=== PATIENT | male | born 1930 | race Caucasian/White ===

== ENCOUNTER → 2017-03-18 | Outpatient (CLI) | payer MEDICARE, OTHER ==
[~2017-03-18] MED LIST: ALLOPURINOL300 MG; ASA 81MG; ASPIRIN81 M1 PO; B12 INJECTION; B121000 MCG/1 IM; CITRATE PO; CLONAZEPAM0.5 MG PO; ETODOLAC400 MG; FLOMAX0.4 MG PO; HYZAAR 12.5 MG-1 TA2; K CITRATE; KEPPRA500 MG PO; LIPITOR20 MG; METANX CAPSULE1 EACH PO; METFORMIN HCL500 MG PO; MIRAPEX0.5 MG; OCUVITE1 TA1; PRAVASTATIN SOD20 MG PO; PRESERVISION A1 EAC1 PO; PRESERVISION AR1 SGL; PRESERVISION AR1 SGL PO; PRILOSEC OTC20 MG; RED YEAST RICE; TRAMADOL HYDROC50 MG PO; TRILEPTAL600 MG; VITAMIN B COMPL1 CAP PO; VITAMIN B1250 MG PO; VITAMIN B12500 MCG PO; VITAMIN B6100 MG PO; [UNRECOGNIZED DRUG - OTHER] PO
== END | disposition home or self-care (01) ==
LOC: RAD 07:33
DX: R13.10 Dysphagia, unspecified (principal)

== ENCOUNTER → 2018-06-23 | Outpatient (CLI) | payer MEDICARE ==
[~2018-06-23] MED LIST changes: +ATORVASTATIN CA10 M1 PO; +Glimepiride1 MG PO; +LOSARTAN POTASS25 M1 PO; +POTASSIUM CITR10 MEQ PO; +PROSCAR5 M1 PO; +SYMB80 INH
== END | disposition home or self-care (01) ==
LOC: LAB 07:50
DX: K52.9 Noninfective gastroenteritis and colitis, unspecified (principal)

== ENCOUNTER 2018-08-01 12:47 | Inpatient (IN) | payer MEDICARE ==
[~2018-08-01] VITALS: Ht 182.8 cm; Wt 97.1 kg
--- NOTE | ~2018-08-01 | PR ---
[place], [place] PROGRESS NOTE NAME: WILBERT CALLE UNIT #: [id number] ROOM: 509 DOCTOR: MARINA CULP MD BIRTHDATE: [birth year] DOS: 08/03/2018 CARDIOLOGY PROGRESS NOTE SUBJECTIVE: The patient was seen at his bedside today 08/03/2018 with family in attendance. The patient tells me that his diaphoresis has resolved, but he is still "shaky." He was told by his primary team that he has "heart failure." I spoke to the primary team based this observation on his stage 1 diastolic relaxation abnormalities. Stage 1 diastolic relaxation abnormalities are universal in anybody over age 40 and relate to delayed left ventricular relaxation. This may predispose to heart failure, but does not prove clinical heart failure. The patient's chest x-ray shows no pulmonary vascular congestion. His exam does not show fluid overload and a BNP level was 193, which is well within normal limits for this lab. PHYSICAL EXAMINATION: VITAL SIGNS: Today, his pulse is 79 and regular, blood pressure is 138/50. He is afebrile. NECK: Supple. He has no jugular distention. Carotids are full. LUNGS: Respirations are unlabored. Chest is clear. HEART: Has a regular rhythm. He had a fourth heart sound, no third heart sound or significant murmur. ABDOMEN: Soft and normally active. EXTREMITIES: Showed no edema. Pedal pulses are easily palpated in the feet bilaterally. IMPRESSION: 1. Fatigue and weakness, etiology to be determined. 2. Near syncope, probably vasovagal. 3. Diaphoresis -- resolved. 4. History of insulin resistance. 5. Cardiac catheterization within the last 2 years at a [facility] reportedly showed no signs of coronary artery disease. 6. No evidence for clinical congestive heart failure. PLAN: No other cardiac workup is planned at this time. He should be managed with normal risk factor modifying techniques, but specific management for heart condition is not indicated. I thank the hospitalist group for asking our advice regarding his care. [place], [place] PROGRESS NOTE NAME: WILBERT CALLE UNIT #: [id number] ROOM: 509 DOCTOR: MARINA CULP MD BIRTHDATE: [birth year] MARINA CULP MD CM:MARSHALL [id number] MARINA CULP MD 08/03/18 1249 interface
--- NOTE | ~2018-08-01 | EKG ---
[place], [place] ELECTROCARDIOGRAM REPORT NAME: WILBERT CALLE UNIT #: [id number] ROOM: 509 DOCTOR: CASTRO DRAFT REPORT BIRTHDATE: [birth year] [facility] Test Date: 2018-08-01 Test Time: 13:03:20 Pat Name: WILBERT CALLE Department: Room: 509 Gender: M Blindstitch Lapel Padder: 0012 : 1930 Requested By: CRISTINA EMMANUEL Order Number: [id number] Reading MD: Jj Johnson MD Measurements Intervals [place] Rate: 63 P: 0 TX: 162 QRS: -39 QRSD: 102 T: 25 QT: 400 QTc: 410 Interpretive Statements Sinus rhythm Abnormal R-wave progression, late transition Inferior infarct, old cannot be ruled out Electronically Signed On 08-01-2018 13:51:43 PDT by Jj Johnson MD CM:EKGRPT:ELECTROCARDIOGRAM REPORT [id number] CRISTINA DUNCAN DRAFT REPORT CRISTINA EMMANUEL DO
--- NOTE | ~2018-08-01 | PR ---
[place], [place] PROGRESS NOTE NAME: WILBERT CALLE UNIT #: [id number] ROOM: 509 DOCTOR: MARINA CULP MD BIRTHDATE: [birth year] DOS: 08/02/2018 SUBJECTIVE: The patient was seen at his bedside with his in attendance today, 08/02/2018. He states that he feels reasonably well this morning. He has not had any further diaphoresis. PHYSICAL EXAMINATION: VITAL SIGNS: His pulse is 72 and regular, blood pressure is 136/97. Orthostatics were unremarkable. He is afebrile. He weighs 97.1 kilograms with a body mass index of 29. NECK: Supple. He has no jugular distention. Carotids are full without bruits. LUNGS: Respirations are unlabored. His chest is clear to auscultation and percussion. HEART: Has a regular rhythm. He has an S4 gallop, but no S3. ABDOMEN: Soft and normally active without masses, organomegaly or bruits. EXTREMITIES: Showed no edema. Peripheral pulses are easily palpated in the feet. LABORATORY DATA: Hemoglobin is 14.4, white count 6000, platelet count 163,000. D-dimer is normal at 0.29. Sodium is 140, potassium 4.8, BUN 22, creatinine 0.97. Total cholesterol is 152, LDL 70. TSH 1.52, free T4 1.07. IMPRESSION: 1. Fatigue and weakness, etiology to be determined. 2. Near syncope. 3. Diaphoresis. 4. History of insulin resistance. 5. History of cardiac catheterization within the last 2 years in a [facility], which reportedly showed no signs of coronary artery disease. PLAN: The patient will ambulate today. 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 An echocardiogram is also pending. We will review these results when available. I thank the hospitalist physicians for asking our advice regarding his care. [place], [place] PROGRESS NOTE NAME: WILBERT CALLE UNIT #: [id number] ROOM: 509 DOCTOR: MARINA CULP MD BIRTHDATE: [birth year] MARINA CULP MD CM:PNTRANS [id number] MARINA CULP MD 08/02/18 1733 interface
--- NOTE | ~2018-08-01 | CON ---
[place], [place] RE[facility] OF [facility]ULTATION [id number] UNIT #: [id number] ROOM: 509 DOCTOR: MARINA CULP MD BIRTHDATE: [birth year] DOS: 08/01/2018 CARDIOLOGY CONSULTATION REASON FOR CONSULTATION: Weakness, diaphoresis, near syncope. HISTORY OF PRESENT ILLNESS: The patient was seen at his bedside at [facility] with his in attendance on 08/01/2018 for evaluation of weakness, diaphoresis and near syncope. He states that he has been feeling poorly for several days. He states that when he is active, he feels like he is weak and could pass out. He states that this is a definite change for him since he is usually very active. He has not had any chest pain or palpitations. He denies any true syncope. He has not had fevers, chills or pedal edema, but he has had the diaphoresis noted above. The patient did have a cardiac catheterization 2 years ago as part of a preoperative assessment prior to left knee replacement. The study was done in [place]. He was told at that time that everything was clear and that he did not have any significant coronary artery disease. PAST MEDICAL HISTORY: Includes: 1. Prediabetes/insulin resistance. 2. Degenerative joint disease, status post bilateral knee replacements. 3. History of macular degeneration. 4. History of gastritis. 5. History of hyperlipidemia. 6. Status post cholecystectomy. 7. History of kidney stones. MEDICATIONS: Prior to admission, vitamin B12 1000 mcg injected monthly, Symbicort 2 puffs q.12 hours, aspirin 81 mg at bedtime, atorvastatin 10 mg 3 times weekly, finasteride 5 mg at bedtime, glimepiride 1 mg at bedtime, losartan 25 mg daily, potassium citrate 10 mEq b.i.d., tramadol 50 mg q.i.d. as needed and Mirapex 0.5 mg at bedtime. ALLERGIES: The patient lists an allergy to FAMCICLOVIR. FAMILY HISTORY: The patient's mother of a stroke, but was 104 years of age. His father of a stroke in his 60s. REVIEW OF SYSTEMS: The patient denies diplopia or loss of vision. He denies syncope. He denies focal weakness. He denies fevers or chills. He has had sweats. He denies nausea or vomiting. He denies change in his appetite, but he states that he gets bloated any time he eats or drinks anything. He denies blood in his stools or urine, but has had some loose stools lately. He denies vomiting, hemoptysis or hematemesis. He denies any recent weight change. He denies any skin rash. He denies any peripheral edema. He denies heat or cold intolerance. He denies polyuria or polydipsia. The remainder of the review of systems is negative except as noted above. [place], [place] REPORT OF CONSULTATION NAME: WILBERT CALLE UNIT #: [id number] ROOM: 509 DOCTOR: MARINA CULP MD BIRTHDATE: [birth year] SOCIAL HISTORY: The patient is and lives with his . He does not smoke or consume excessive amounts of alcohol. PHYSICAL EXAMINATION: GENERAL: The patient is a well-nourished white male who is awake, alert and oriented. VITAL SIGNS: Pulse is 68 and regular, blood pressure is 145/85. He is afebrile. He weighs 94.3 kg and has a body mass index 28.2. HEENT: Normocephalic, atraumatic. Extraocular muscles are intact. Sclerae are clear. Pupils are equal, round and react to light. The oral mucosa is moist. Tongue is midline. NECK: Supple. He has no jugular distention. Carotids are full. I heard no bruits. He had no neck or supraclavicular masses. LUNGS: Respirations are unlabored. His chest is clear to auscultation and percussion. He has no presacral edema or chest wall tenderness. CARDIOVASCULAR: His heart has a regular rhythm. He has a fourth heart sound, but no third heart sound or murmur. The PMI is not displaced. There is no precordial heave, lift or thrill. ABDOMEN: Soft and normally active without masses, organomegaly or bruits. EXTREMITIES: Showed no edema. Peripheral pulses are easily palpated in the feet. He has no palpable calf cords and no Homans sign. LABORATORY DATA: I reviewed his electrocardiogram, which showed sinus rhythm at a rate of 63 with poor precordial R-wave progression. I reviewed the chest x-ray, which showed no acute infiltrates. Hemoglobin is 14.8 with hematocrit 42.8, there are 6100 white cells and 177,000 platelets present. D-dimer is normal at 0.29. Sodium is 139, potassium 4.1, chloride 105, CO2 of 28, BUN 22, creatinine 1.06, magnesium 2.2. Serial troponin levels have been negative. C-reactive protein is normal at 0.29. ProBNP is normal at 193. IMPRESSIONS: 1. Fatigue and weakness, etiology to be determined. 2. Near syncope. 3. Diaphoresis. 4. History of insulin resistance. 5. History of cardiac catheterization within the last 2 years in a [facility], which reportedly showed no signs of coronary artery disease. PLAN: The etiology of the patient's symptoms is not obvious. Thus far, he shows no signs of cardiac ischemia or arrhythmias. His examination is unremarkable and blood screen has been normal to date as well. We will be checking orthostatic vital signs and an echocardiogram to look for LV dysfunction, etc. We will continue to monitor him on telemetry. At this point, no other cardiac workup is felt to be indicated. I thank the hospitalist physicians for asking our advice regarding his care. [place], [place] REPORT OF CONSULTATION NAME: WILBERT CALLE UNIT #: [id number] ROOM: 509 DOCTOR: MARINA CULP MD BIRTHDATE: [birth year] MARINA CULP MD CM:CONSTR:REPORT OF CONSULTATION 1730 08/02/18 0040 interface
[~2018-08-01 12:47] MED LIST changes: -ATORVASTATIN CA10 M1 PO; -Glimepiride1 MG PO; -LOSARTAN POTASS25 M1 PO; -POTASSIUM CITR10 MEQ PO; -PROSCAR5 M1 PO; -SYMB80 INH
[2018-08-01 12:48] VITALS: BP 145/85
[2018-08-01 13:09] LABS: BASO % 0.3 % (0.0-1.0); EOS # 0.2 10*3/uL (0.0-0.4); EOS % 2.6 % (1.0-4.0); HEMATOCRIT 42.8 % (42.0-52.0); HEMOGLOBIN 14.8 g/dl (14.0-18.0); LYMPH # 1.6 10*3/uL (1.3-4.4); LYMPH % 26.8 % (27.0-41.0); MEAN CELL VOLUME 100.7 fl (80.0-94.0); MEAN CORPUSCULAR HGB 34.8 pg (27.0-31.0); MEAN CORPUSCULAR HGB CONC 34.6 g/dl (33.0-37.0); MONO # 0.5 10*3/uL (0.1-1.0); MONO % 7.9 % (3.0-9.0); NEUT # 3.8 10*3/uL (2.3-7.9); NEUT % 62.1 % (47.0-73.0); PLATELET COUNT AUTOMATED 177 10*3/uL (130-400); RED BLOOD COUNT 4.25 10*6/uL (4.50-5.90); RED CELL DISTRI WIDTH 13.7 % (0-14.5); WHITE BLOOD COUNT 6.1 10*3/uL (4.8-10.8)
[2018-08-01 13:21] LABS: ACT PARTIAL THROMBO TIME 21.9 SECONDS (20.8-31.5)
[2018-08-01 13:28] LABS: ALKALINE PHOSPHATASE 80 U/L (45-117); BUN 22 mg/dl (7-24); CHLORIDE 105 mmol/L (98-107); CREATININE 1.06 mg/dL (0.70-1.30); LIPASE 140 U/L (73-393); POTASSIUM 4.1 mmol/L (3.5-5.1); SGOT/AST 22 IU/L (3-35); SGPT/ALT 34 U/L (12-78); SODIUM 139 mmol/L (136-145); TOTAL PROTEIN 7.3 gm/dL (6.4-8.2)
[2018-08-01 13:31] LABS: TROPONIN I < 0.015 ng/ml (<0.045)
[2018-08-01 14:26] LABS: BILIRUBIN NEGATIVE (NEGATIVE); BLOOD NEGATIVE (NEGATIVE); CLARITY CLEAR (CLEAR); COLOR YELLOW (YELLOW); GLUCOSE NEGATIVE (NEGATIVE); KETONE NEGATIVE (NEGATIVE); LEUKO ESTERASE NEGATIVE (NEGATIVE); NITRITE NEGATIVE (NEGATIVE); UROBILINOGEN 0.2 E.U./dl (0.2-1.0)
[2018-08-01 14:41] LABS: BACTERIA TRACE; RBC 0-2 rbc/hpf (0-2)
[2018-08-01] MEDS ORDERED: PROSCAR5 M1 PO (15:32)
[2018-08-01] MEDS ORDERED: Glimepiride1 MG PO (15:33)
[2018-08-01] MEDS ORDERED: LOSARTAN POTASS25 M1 PO (15:35)
[2018-08-01 16:20] VITALS: BP 145/85
[2018-08-01 16:22] VITALS: BP 145/85
[2018-08-01] MEDS ORDERED: POTASSIUM CITR10 MEQ PO (16:34)
[2018-08-01] MEDS ORDERED: ATORVASTATIN CA10 M1 PO (16:36)
[2018-08-01] MEDS ORDERED: SYMB80 INH (16:41)
[2018-08-01 20:00] VITALS: BP 142/81
[2018-08-02] VITALS: BP 118/76
[2018-08-02 06:38] LABS: BASO % 0.3 % (0.0-1.0); EOS # 0.2 10*3/uL (0.0-0.4); EOS % 3.7 % (1.0-4.0); HEMOGLOBIN 14.4 g/dl (14.0-18.0); LYMPH # 1.7 10*3/uL (1.3-4.4); LYMPH % 28.6 % (27.0-41.0); MEAN CELL VOLUME 101.9 fl (80.0-94.0); MEAN CORPUSCULAR HGB 34.1 pg (27.0-31.0); MEAN CORPUSCULAR HGB CONC 33.5 g/dl (33.0-37.0); MEAN PLATELET VOLUME 10.1 fl (9.6-12.3); MONO # 0.5 10*3/uL (0.1-1.0); MONO % 8.4 % (3.0-9.0); NEUT # 3.5 10*3/uL (2.3-7.9); NEUT % 58.5 % (47.0-73.0); NUCLEATED RED BLOOD CELL 0.3 % (0.0-0.0); PLATELET COUNT AUTOMATED 163 10*3/uL (130-400); RED BLOOD COUNT 4.22 10*6/uL (4.50-5.90); RED CELL DISTRI WIDTH 13.8 % (0-14.5)
[2018-08-02 07:14] LABS: ALBUMIN 3.6 gm/dl (3.1-4.5); BUN 22 mg/dl (7-24); CHLORIDE 105 mmol/L (98-107); POTASSIUM 4.8 mmol/L (3.5-5.1); SODIUM 140 mmol/L (136-145)
[2018-08-02 07:22] LABS: ALKALINE PHOSPHATASE 72 U/L (45-117); CHOLESTEROL 152 mg/dL (<200); CREATININE 0.97 mg/dL (0.70-1.30); FREE T4 1.07 ng/dl (0.76-1.46); HDL CHOLESTEROL 65 mg/dl (40-60); LDL CHOLESTEROL 70 mg/dL (9-159); PHOSPHOROUS 3.1 mg/dL (2.5-4.9); SGOT/AST 17 IU/L (3-35); SGPT/ALT 30 U/L (12-78); TOTAL PROTEIN 6.7 gm/dL (6.4-8.2); TRIGLYCERIDES 83 mg/dl (<150); VLDL CHOLESTEROL 17 mg/dL (6-40)
[2018-08-02 08:00] VITALS: BP 136/97; BP 150/90
[2018-08-02 12:00] VITALS: BP 138/83
[2018-08-02 16:00] VITALS: BP 129/79
[2018-08-02 20:00] VITALS: BP 102/60; BP 97/54
[2018-08-03] VITALS: BP 105/69; BP 112/70
[2018-08-03 08:21] VITALS: BP 138/50
[2018-08-03 12:00] VITALS: BP 152/75
== END 2018-08-03 15:24 | disposition home or self-care (01) | DRG 312 ==
LOC: ED 12:47 → EDHOLD 14:48 → 5E 14:48
PROVIDERS: Emergency Medicine; Family Medicine
DX: R55 Syncope and collapse (principal); R06.09 Other forms of dyspnea; R53.1 Weakness; R26.81 Unsteadiness on feet; E11.65 Type 2 diabetes mellitus with hyperglycemia; D75.89 Other specified diseases of blood and blood-forming organs; N40.0 Benign prostatic hyperplasia without lower urinary tract symptoms; I10 Essential (primary) hypertension; Z96.653 Presence of artificial knee joint, bilateral; E78.5 Hyperlipidemia, unspecified; Z88.8 Allergy status to other drugs, medicaments and biological substances; Z79.899 Other long term (current) drug therapy; Z79.82 Long term (current) use of aspirin; Z90.49 Acquired absence of other specified parts of digestive tract; Z87.442 Personal history of urinary calculi; Z82.49 Family history of ischemic heart disease and other diseases of the circulatory system; Z82.3 Family history of stroke; Z83.3 Family history of diabetes mellitus; Z85.828 Personal history of other malignant neoplasm of skin

== ENCOUNTER → 2019-05-26 | Outpatient (CLI) | payer MEDICARE ==
[~2019-05-26] MED LIST changes: +ALDACTONE25 M1 PO; +ATORVASTATIN CA10 M1 PO; +COREG3.125 MG PO; +CYMBALTA20 M1 PO; +ELIQUIS5 M1 PO; +Glimepiride1 MG PO; +KLONOPIN0.5 MG PO; +LASIX20 MG PO; +LIPITOR10 MG PO; +LOSARTAN POTASS25 M1 PO; +POTASSIUM CITR10 MEQ PO; +PROSCAR5 M1 PO; +SYMB80 INH
--- NOTE | ~2019-05-26 | ST ---
[place], [place] EXERCISE STRESS TEST REPORT NAME: WILBERT CALLE [facility] #: [id number] UNIT #: [id number] ROOM: DOCTOR: SCOT ZAFAR MD BIRTHDATE: [birth year] DOS: 05/26/2019 LEXISCAN STRESS EKG REFERRING PHYSICIAN: Dr. Hartman. INDICATION: Chest pain. The patient underwent standard protocol Lexiscan stress EKG. The patient's baseline EKG, normal sinus, nonspecific ST-T wave changes, heart rate 64, blood pressure 130/80. The patient's peak heart rate was 79 with a blood pressure of 110/58. The patient had no chest pain, no ischemic changes, no arrhythmias. SUMMARY OF FINDINGS: Unremarkable Lexiscan stress EKG. Please see separate report for perfusion scan imaging results. SCOT ZAFAR MD CM:STRESS:EXERCISE STRESS TEST REPORT [id number] SCOT ZAFAR MD
--- NOTE | 2019-05-26 11:15 | NUR ---
INFORMED CONSENT OBTAINED FOR LEXISCAN NUCLEAR STRESS TEST WITH DR. ZAFAR. RESTING EKG NSR WITH A RESTING HR OF 64 WITH BP OF 130/80. LUNGS CLEAR WITH SPO2 OF 99% ON ROOM AIR. PT COMPLETED A 1:00 LEXISCAN PROTOCOL RECEIVING LEXISCAN 0.4 MG IV OVER 10 SECONDS. HAD NO CHEST PAIN OR OR ANY ST CHANGES. HAS A RARE PVC. HAD A PEAK HR OF 79 WITH BP OF 122/58. LAST RECOVERY HR OF 75 WITH BP OF 110/58. AWAITING SCANNING IN STABLE CONDITION.
== END | disposition home or self-care (01) ==
LOC: CARD 03:11
DX: R07.9 Chest pain, unspecified (principal); R06.00 Dyspnea, unspecified